=== PATIENT | male | born 1970 | race Two or more races ===

== ENCOUNTER 2019-06-20 14:38 | Inpatient (IN) | payer MEDICAID ==
[~2019-06-20] VITALS: Ht 182.9 cm; Wt 86.2 kg
[2019-06-20] MEDS ORDERED: MILK OF MA2400 MG/10 ORAL (14:50)
[2019-06-20] MEDS ORDERED: MULTIVITAMINS1 EAC8 ORAL (14:53)
[2019-06-20] MEDS ORDERED: MORPHINE SULFAT15 M1 PO (14:53)
--- NOTE | 2019-06-20 15:01 | NUR ---
ED Nurse Note: Pt brought in by ambulance from [facility] d/t abnormal labs. Plt: 12,000. WBC 19.51. Per EMS, pt had a bloody nose earlier today with large clot. Respirations even and unlabored on room air. Pt placed on monitor. Vitals stable as documented. Pt has history of lukemia and cirrhosis. PT BROUGHT IN BY [facility] FROM [facility] DUE TO LOW PLATELET COUNT 12,000. WBC OF 19.51. PT IS DNR
[2019-06-20 15:04] VITALS: BP 118/71
[2019-06-20] MEDS ORDERED: VITAMIN B-1100 MG ORAL (15:16)
[2019-06-20] MEDS ORDERED: QUETIAPINE FUMA50 MG ORAL (15:16)
[2019-06-20] MEDS ORDERED: MYLANTA MAXIMU355 ML PO (15:16)
[2019-06-20] MEDS ORDERED: NORCO 5-325 TA1 EACH ORAL (15:16)
[2019-06-20] MEDS ORDERED: ACETAMINOPHEN325 M1 ORAL (15:16)
[2019-06-20] MEDS ORDERED: OYSCO 500+D TA1 EAC1 PO (15:16)
[2019-06-20 17:02] LABS: INR 1.1 (0.9-1.1)
[2019-06-20 17:04] LABS: ANION GAP 11 mmol/L (5-15); BLOOD UREA NITROGEN 35 mg/dL (7-18); CALCIUM 9.1 MG/DL (8.5-10.1); CARBON DIOXIDE 27 MMOL/L (21-32); CHLORIDE 100 MMOL/L (98-107); CREATININE 1.2 MG/DL (0.55-1.30); SODIUM 138 MMOL/L (136-145)
[2019-06-20 17:09] LABS: ALANINE AMINOTRANSFERASE 30 U/L (12-78); ALBUMIN 3.3 G/DL (3.4-5.0); ALKALINE PHOSPHATASE 242 U/L (46-116); ASPARTATE AMINO TRANSFERASE 24 U/L (15-37); BILIRUBIN,TOTAL 0.6 MG/DL (0.2-1.0)
[2019-06-20 17:17] LABS: HEMATOCRIT 20.5 % (42.0-52.0); MEAN CORPUSCULAR VOLUME 87 FL (80-99); RED BLOOD COUNT 2.36 M/UL (4.70-6.10); RED CELL DISTRIBUTION WIDTH 12.6 % (11.6-14.8)
[2019-06-20 17:21] LABS: PLATELET COUNT 5 K/UL (150-450); WHITE BLOOD COUNT 25.9 K/UL (4.8-10.8)
--- NOTE | 2019-06-20 17:21 | NUR ---
ED Nurse Note: Pt confused. Bulgarian speaking, A+Ox1/2. Pt continues to pull off child monitor leads. Reapplied and asked pt to keep them on.
[2019-06-20 17:30] VITALS: BP 121/74
--- NOTE | 2019-06-20 17:44 | NUR ---
ED Nurse Note: Spoke with lab and they confirmed they have the blood for type and cross
--- NOTE | 2019-06-20 17:49 | NUR ---
ED Nurse Note: Spoke with Pia in blood bank whom said she is working on the type and cross for the patient.
--- NOTE | 2019-06-20 17:59 | NUR ---
ED Nurse Note: MRSA/VRE/CRE Swabs sent to lab
--- NOTE | 2019-06-20 18:05 | NUR ---
ED Nurse Note: Leads removed and replaced
--- NOTE | 2019-06-20 18:23 | NUR ---
ED Nurse Note: Waiting on blood blank to begin plasmapheresis before transferring patient to telemtry.
--- NOTE | 2019-06-20 18:51 | Emergency Room Report ---
History of Present Illness General Chief Complaint: Abnormal Labs Source: Patient, Medical Record Present Illness HPI Patient presented for increased bleeding. Had prior history of leukemia. He was noted to be thrombocytopenic on laboratory testing. Patient was sent in for further management of bleeding. Patient had recent blood test which showed platelet count approximately 12,000. He had also been noted to have hemoglobin of 7.6. White count was somewhat elevated. History is limited by poor historian. Patient was noted to be DNR. Allergies: Coded Allergies: No Known Allergies (Unverified , 06/20/19) Patient History Past Medical History: see triage record Reviewed Nursing Documentation: PMH: Agreed; PSxH: Agreed Review of Systems All Other Systems: limited - Review of systems: Review systems is limited by patient's being a poor historian Physical Exam Vital Signs Date Time Temp Pulse Resp B/P (MAP) Pulse Ox O2 Delivery O2 Flow Rate FiO2 06/20/19 14:39 98.1 106 18 119/80 (93) 91 Room Air General Appearance: Chronically Ill ENT: other - dried Blood from oropharynx Neck: full range of motion, supple Respiratory: chest non-tender, lungs clear, normal breath sounds Cardiovascular #1: normal peripheral pulses, regular rate, rhythm Gastrointestinal: normal bowel sounds, soft Musculoskeletal: back normal, decreased range of motion Neurologic: motor strength/tone normal, 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 Differential diagnosis include was not limited to thrombocytopenia, anemia among others. Because of complexity of patient's case laboratory tests and imaging studies were ordered. Patient was noted to have prior history of leukemia and was noted to have some blood from his oropharynx. Per patient's records patient is to have high blood transfusion. He continues to be DNR. Patient was typed and crossed for blood as well as for platelets. Platelets were ordered however they were currently unavailable during ER course Dr. Cam Raya was contacted for inpatient management due to covering physician for Dr. Hernandez. Labs Test 06/20/19 15:30 White Blood Count 25.9 K/UL (4.8-10.8) Red Blood Count 2.36 M/UL (4.70-6.10) Hemoglobin 7.0 G/DL (14.2-18.0) Hematocrit 20.5 % (42.0-52.0) Mean Corpuscular Volume 87 FL (80-99) Mean Corpuscular Hemoglobin 29.7 PG (27.0-31.0) Mean Corpuscular Hemoglobin Concent 34.2 G/DL (32.0-36.0) Red Cell Distribution Width 12.6 % (11.6-14.8) Platelet Count 5 K/UL (150-450) Neutrophils (%) (Auto) % (45.0-75.0) Lymphocytes (%) (Auto) % (20.0-45.0) Monocytes (%) (Auto) % (1.0-10.0) Eosinophils (%) (Auto) % (0.0-3.0) Basophils (%) (Auto) % (0.0-2.0) Prothrombin Time 11.6 SEC (9.30-11.50) Prothromb Time International Ratio 1.1 (0.9-1.1) Activated Partial Thromboplast Time 32 SEC (23-33) Sodium Level 138 MMOL/L (136-145) Potassium Level 5.0 MMOL/L (3.5-5.1) Chloride Level 100 MMOL/L (98-107) Carbon Dioxide Level 27 MMOL/L (21-32) Anion Gap 11 mmol/L (5-15) Blood Urea Nitrogen 35 mg/dL (7-18) Creatinine 1.2 MG/DL (0.55-1.30) Estimat Glomerular Filtration Rate > 60 mL/min (>60) Glucose Level 107 MG/DL (74-106) Calcium Level 9.1 MG/DL (8.5-10.1) Total Bilirubin 0.6 MG/DL (0.2-1.0) Aspartate Amino Transf (AST/SGOT) 24 U/L (15-37) Alanine Aminotransferase (ALT/SGPT) 30 U/L (12-78) Alkaline Phosphatase 242 U/L (46-116) Total Protein 6.6 G/DL (6.4-8.2) Albumin 3.3 G/DL (3.4-5.0) Globulin 3.3 g/dL Albumin/Globulin Ratio 1.0 (1.0-2.7) Last Vital Signs Date Time Temp Pulse Resp B/P (MAP) Pulse Ox O2 Delivery O2 Flow Rate FiO2 06/20/19 17:30 98.0 102 18 121/74 95 Room Air Status: improved Disposition: ADMITTED INPATIENT Condition: Stable Referrals: NON PHYSICIAN (PCP) George Toney MD Jun 20, 2019 18:51
--- NOTE | 2019-06-20 19:09 | NUR ---
ED Nurse Note: Report given to REGINO Martinez. Plan of care endorsed.
[2019-06-20 19:10] VITALS: BP 128/71
--- NOTE | 2019-06-20 19:18 | NUR ---
ED Nurse Note: Received report from Teetee LACY. Type and screen blood collected and sent to lab.
--- NOTE | 2019-06-20 19:49 | NUR ---
ED Nurse Note: Report given Miles LACY from Tele.
--- NOTE | 2019-06-20 20:05 | NUR ---
ED Nurse Note: Blood was picked up from the lab.
--- NOTE | 2019-06-20 20:10 | NUR ---
Noel fan in EDM - 06/20/19 at 2233 by JOSÉ LUIS ED Nurse Note: Report given to Miles MONTEMAYOR
[2019-06-20 20:15] VITALS: BP 108/79
--- NOTE | 2019-06-20 20:15 | NUR ---
ED Nurse Note: Blood transfusion started and witnessed by Carie LACY. No ASE noted.
[2019-06-20 20:30] VITALS: BP 113/84
--- NOTE | 2019-06-20 20:40 | NUR ---
TRANSFER TO FLOOR: Patient transferred to Telemetry unit. Report given to Miles LACY. Pt alert and orientedx2, chinese speaking only. No SOB. Not in any distress. Sinus tachy. Afebrile. IV line on right hand 20g patent and intact. Currently on BT @150ml/hr, Non ASE noted. No skin issues. Swabs are sent. Med recon done. All belongings sent with the patient.
[2019-06-20 21:00] VITALS: BP 126/84
--- NOTE | 2019-06-20 21:00 | NUR ---
NURSE NOTES: Got report from Michelle LACY from ER. Pt arrived from ER via gurney. Initial assessment done. Pt unable to answer any of my questions Belgian speaking and confused. Pt non ambulatory. No skin issues noted. VS T:97.7 HR:105 R:18 BP:126/84 O2:96% on room air. color television console monitor placed on pt running Sinus Tachycardia on the monitor. Belongings list verified. No s/s of distress or discomfort noted. Pt here for abnormal labs. Pt resting in bed comfortably. Bed in low and locked position, call light within reach, bedside table within reach. Continue to monitor. Orders given by Dr. Raya. Addendum: 06/21/19 at 0706 by Chidi Marrero RN Transfused 2 Units of blood and 1 unit of platelets throughout the night. Pt in stable condition.
[2019-06-21] VITALS: BP 146/84
[2019-06-21 04:00] VITALS: BP 130/79
[2019-06-21] MEDS ORDERED: LORazepam Inj 2mg/ml 1ml IV PRN (05:30)
[2019-06-21] MEDS ORDERED: HYDROcodone/Acetamin 5/325 tab ORAL PRN (06:00)
[2019-06-21] MEDS ORDERED: Morphine IR 15mg tab ORAL PRN (06:00)
--- NOTE | 2019-06-21 07:20 | NUR ---
HAND-OFF: Report given to Miguel LACY.
[2019-06-21 08:00] VITALS: BP 140/95
--- NOTE | 2019-06-21 08:09 | General Progress Note ---
Subjective Allergies: Coded Allergies: No Known Allergies (Unverified , 06/20/19) Objective Last 24 Hour Vital Signs Date Time Temp Pulse Resp B/P (MAP) Pulse Ox O2 Delivery O2 Flow Rate FiO2 06/21/19 06:12 Room Air 06/21/19 05:55 Room Air 06/21/19 04:00 115 06/21/19 04:00 98.5 100 18 130/79 (96) 96 06/21/19 00:00 98.1 115 18 146/84 (104) 96 06/20/19 21:00 97.7 105 18 126/84 (98) 96 06/20/19 20:40 97.8 106 19 113/84 98 Room Air 06/20/19 20:30 97.8 106 19 113/84 98 Room Air 06/20/19 20:15 97.8 101 19 108/79 99 Room Air 06/20/19 20:00 103 06/20/19 19:10 98.2 100 19 128/71 98 Room Air 06/20/19 17:30 98.0 102 18 121/74 95 Room Air 06/20/19 15:04 98.1 105 18 118/71 95 Room Air 06/20/19 14:39 98.1 106 18 119/80 (93) 91 Room Air Intake and Output 06/20/19 06/21/19 19:00 07:00 Intake Total 0 ml Balance 0 ml Intake Oral 0 ml # Voids 2 Laboratory Tests 06/20/19 15:30: White Blood Count 25.9*H, Red Blood Count 2.36L, Hemoglobin 7.0L, Hematocrit 20.5L, Mean Corpuscular Volume 87, Mean Corpuscular Hemoglobin 29.7, Mean Corpuscular Hemoglobin Concent 34.2, Red Cell Distribution Width 12.6, Platelet Count 5*L, Mean Platelet Volume , Neutrophils (%) (Auto) , Lymphocytes (%) (Auto ) , Monocytes (%) (Auto) , Eosinophils (%) (Auto) , Basophils (%) (Auto) , Differential Total Cells Counted 100, Neutrophils % (Manual) 14L, Lymphocytes % (Manual) 77H, Monocytes % (Manual) 0L, Eosinophils % (Manual) 0, Basophils % ( Manual) 0, Blast Cells % 8*H, Band Neutrophils 1, Reactive Lymphocytes 1+, Smudge Cells Occasional, Platelet Estimate DecreasedL, Platelet Morphology Normal, Hypochromasia 3+, Prothrombin Time 11.6H, Prothromb Time International Ratio 1.1, Activated Partial Thromboplast Time 32, Sodium Level 138, Potassium Level 5.0, Chloride Level 100, Carbon Dioxide Level 27, Anion Gap 11, Blood Urea Nitrogen 35H, Creatinine 1.2, Estimat Glomerular Filtration Rate > 60, Glucose Level 107H, Calcium Level 9.1, Total Bilirubin 0.6, Aspartate Amino Transf (AST/SGOT) 24, Alanine Aminotransferase (ALT/SGPT) 30, Alkaline Phosphatase 242H, Total Protein 6.6, Albumin 3.3L, Globulin 3.3, Albumin/ Globulin Ratio 1.0 06/21/19 07:00: Sodium Level [Pending], Potassium Level [Pending], Chloride Level [Pending], Carbon Dioxide Level [Pending], Blood Urea Nitrogen [Pending], Creatinine [ Pending], Estimat Glomerular Filtration Rate [Pending], Glucose Level [Pending] , Calcium Level [Pending] 06/21/19 07:15: White Blood Count [Pending], Red Blood Count [Pending], Hemoglobin [Pending], Hematocrit [Pending], Mean Corpuscular Volume [Pending], Mean Corpuscular Hemoglobin [Pending], Mean Corpuscular Hemoglobin Concent [Pending], Red Cell Distribution Width [Pending], Platelet Count [Pending], Mean Platelet Volume [ Pending], Neutrophils (%) (Auto) [Pending], Lymphocytes (%) (Auto) [Pending], Monocytes (%) (Auto) [Pending], Eosinophils (%) (Auto) [Pending], Basophils (%) (Auto) [Pending] Height (Feet): 6 Height (Inches): 0.00 Weight (Pounds): 190 Cam Raya MD Jun 21, 2019 08:09
--- NOTE | 2019-06-21 08:09 | History & Physical ---
History and Physical History & Physicial Patient presented for increased bleeding from the half-way. He has a history of leukemia. He was noted to be thrombocytopenic and anemic. Patient had recent blood test which showed profound thrombocytopenia, anemia, and leukocytosis. History is limited by poor historian. Patient was noted to be DNR. PMH leukemia panyctopenia psychosis MEDS and ALLERGIES noted and reconciled SOCIAL- resides at [facility] ROS unable FHX unable PHYSICAL WDWN chronically ill clear breath sounds bilaterally without rhonchi or wheeze [id number] without MRG NABS nontender no HSM no CCE nonfocal Labs Test 06/20/19 15:30 06/21/19 07:00 06/21/19 07:15 White Blood Count 25.9 K/UL (4.8-10.8) Red Blood Count 2.36 M/UL (4.70-6.10) Hemoglobin 7.0 G/DL (14.2-18.0) Hematocrit 20.5 % (42.0-52.0) Mean Corpuscular Volume 87 FL (80-99) Mean Corpuscular Hemoglobin 29.7 PG (27.0-31.0) Mean Corpuscular Hemoglobin Concent 34.2 G/DL (32.0-36.0) Red Cell Distribution Width 12.6 % (11.6-14.8) Platelet Count 5 K/UL (150-450) Mean Platelet Volume FL (6.5-10.1) Neutrophils (%) (Auto) % (45.0-75.0) Lymphocytes (%) (Auto) % (20.0-45.0) Monocytes (%) (Auto) % (1.0-10.0) Eosinophils (%) (Auto) % (0.0-3.0) Basophils (%) (Auto) % (0.0-2.0) Differential Total Cells Counted 100 Neutrophils % (Manual) 14 % (45-75) Lymphocytes % (Manual) 77 % (20-45) Monocytes % (Manual) 0 % (1-10) Eosinophils % (Manual) 0 % (0-3) Basophils % (Manual) 0 % (0-2) Blast Cells % 8 % (0-0) Band Neutrophils 1 % (0-8) Reactive Lymphocytes 1+ Smudge Cells Occasional Platelet Estimate Decreased Platelet Morphology Normal Hypochromasia 3+ Prothrombin Time 11.6 SEC (9.30-11.50) Prothromb Time International Ratio 1.1 (0.9-1.1) Activated Partial Thromboplast Time 32 SEC (23-33) Sodium Level 138 MMOL/L (136-145) Potassium Level 5.0 MMOL/L (3.5-5.1) Chloride Level 100 MMOL/L (98-107) Carbon Dioxide Level 27 MMOL/L (21-32) Anion Gap 11 mmol/L (5-15) Blood Urea Nitrogen 35 mg/dL (7-18) Creatinine 1.2 MG/DL (0.55-1.30) Estimat Glomerular Filtration Rate > 60 mL/min (>60) Glucose Level 107 MG/DL (74-106) Calcium Level 9.1 MG/DL (8.5-10.1) Total Bilirubin 0.6 MG/DL (0.2-1.0) Aspartate Amino Transf (AST/SGOT) 24 U/L (15-37) Alanine Aminotransferase (ALT/SGPT) 30 U/L (12-78) Alkaline Phosphatase 242 U/L (46-116) Total Protein 6.6 G/DL (6.4-8.2) Albumin 3.3 G/DL (3.4-5.0) Globulin 3.3 g/dL Albumin/Globulin Ratio 1.0 (1.0-2.7) IMPRESSION thrombocytopenia anemia leukemia bleeding diathesis toxic met encephalopathy PLAN transfuse platelets and PRBC monitor for bleeding resume snf meds heme eval dc to snf prognosis is poor impression, plan, and exam edited and reviewed in detail care discussed with Cam Dennis MD Jun 21, 2019 08:09
[2019-06-21 08:22] LABS: ANION GAP 13 mmol/L (5-15); BLOOD UREA NITROGEN 39 mg/dL (7-18); CALCIUM 9.2 MG/DL (8.5-10.1); CARBON DIOXIDE 27 MMOL/L (21-32); CHLORIDE 102 MMOL/L (98-107); CREATININE 1.3 MG/DL (0.55-1.30); POTASSIUM 4.5 MMOL/L (3.5-5.1); SODIUM 142 MMOL/L (136-145)
[2019-06-21] MEDS: Tums 500mg ORAL SCH (08:50)
[2019-06-21] MEDS: Milk of Magnesia 30ml Ud ORAL SCH ×2 (08:50→21:00)
[2019-06-21] MEDS: Thiamine 100mg tab ORAL SCH (08:50)
[2019-06-21 09:02] LABS: HEMATOCRIT 25.5 % (42.0-52.0); HEMOGLOBIN 9.4 G/DL (14.2-18.0); MEAN CORPUSCULAR VOLUME 85 FL (80-99); RED CELL DISTRIBUTION WIDTH 12.1 % (11.6-14.8)
[2019-06-21 09:07] LABS: WHITE BLOOD COUNT 22.3 K/UL (4.8-10.8)
[2019-06-21 09:08] LABS: PLATELET COUNT 8 K/UL (150-450)
--- NOTE | 2019-06-21 10:53 | NUR ---
NURSE NOTES: pt asleep easily arousable, no distress. no sob.call light within reach. bed in lowest position, locked. 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 cleaned pt, voidx2, incontinent. turned and repositioned. pt still has intermittent restlessness and has removed his iv on left hand 22, no bleeding at this time. reinserted patent iv on rfa 22g clamped. will monitor.
[2019-06-21 12:00] VITALS: BP 128/80
[2019-06-21 16:00] VITALS: BP 134/80
--- NOTE | 2019-06-21 18:01 | NUR ---
NURSE NOTES: relayed to pt re minimal gum bleeding , no new orders . also relayed to pt refusing meals only drank some water, rn asked for possible iv fluids. await response Addendum: 06/21/19 at 1917 by RAZA FUNEZ RN AWARE OF ABOVE RECEIVED ORDER FOR LABS IN AM , ENTERED
[2019-06-21 19:11] LABS: HEMATOCRIT 24.8 % (42.0-52.0); HEMOGLOBIN 8.1 G/DL (14.2-18.0); MEAN CORPUSCULAR VOLUME 88 FL (80-99); RED BLOOD COUNT 2.82 M/UL (4.70-6.10); RED CELL DISTRIBUTION WIDTH 12.8 % (11.6-14.8); WHITE BLOOD COUNT 10.5 K/UL (4.8-10.8)
--- NOTE | 2019-06-21 19:18 | NUR ---
HAND-OFF: Report given to GORDON LACY.
[2019-06-21 19:19] LABS: PLATELET COUNT 5 K/UL (150-450)
--- NOTE | 2019-06-21 19:19 | NUR ---
NURSE NOTES: Got report from Miguel LACY. Pt in stable condition. Denies any pain. No s/s of distress or discomfort noted. Pt resting in bed comfortably. Bed in low and locked position, call light within reach, bedside table within reach. Continue to monitor.
[2019-06-21 20:00] VITALS: BP 137/68
[2019-06-22] VITALS: BP 148/86
[2019-06-22 04:00] VITALS: BP 131/86
--- NOTE | 2019-06-22 07:45 | NUR ---
HAND-OFF: Report given to Cici LACY.
--- NOTE | 2019-06-22 07:46 | NUR ---
NURSE NOTES: Patient received from Miles Marrero RN. Patient stable, asking for knife to cut restraints. Patient explained need for restraints but unable to verbalize understanding. Will continue for now. RR even and unlabored on RA. No s/sx of distress. Side rails upx2, call light within reach, bed low and locked. Will continue to monitor.
[2019-06-22 08:00] VITALS: BP 142/91
[2019-06-22 08:02] LABS: HEMATOCRIT 21.4 % (42.0-52.0); HEMOGLOBIN 7.8 G/DL (14.2-18.0); MEAN CORPUSCULAR VOLUME 84 FL (80-99); PLATELET COUNT 12 K/UL (150-450); RED BLOOD COUNT 2.55 M/UL (4.70-6.10); RED CELL DISTRIBUTION WIDTH 12.2 % (11.6-14.8); WHITE BLOOD COUNT 9.6 K/UL (4.8-10.8)
[2019-06-22] MEDS: Tums 500mg ORAL SCH (08:22)
[2019-06-22] MEDS: Milk of Magnesia 30ml Ud ORAL SCH ×2 (08:22→21:00)
[2019-06-22] MEDS: Thiamine 100mg tab ORAL SCH (08:23)
[2019-06-22 08:41] LABS: ANION GAP 11 mmol/L (5-15); BLOOD UREA NITROGEN 43 mg/dL (7-18); CALCIUM 8.8 MG/DL (8.5-10.1); CARBON DIOXIDE 28 MMOL/L (21-32); CHLORIDE 105 MMOL/L (98-107); CREATININE 1.2 MG/DL (0.55-1.30); POTASSIUM 4.1 MMOL/L (3.5-5.1); SODIUM 144 MMOL/L (136-145)
--- NOTE | 2019-06-22 10:33 | General Progress Note ---
Assessment/Plan Assessment/Plan: IMPRESSION thrombocytopenia anemia leukemia bleeding diathesis toxic met encephalopathy PLAN transfuse platelets and PRBC remains low monitor for bleeding maintain snf meds heme eval dc to snf when stable prognosis is poor ? hospice impression, plan, and exam edited and reviewed in detail care discussed with RN Subjective Allergies: Coded Allergies: No Known Allergies (Unverified , 06/20/19) Subjective care noted heme called Objective Last 24 Hour Vital Signs Date Time Temp Pulse Resp B/P (MAP) Pulse Ox O2 Delivery O2 Flow Rate FiO2 06/22/19 08:00 104 06/22/19 04:00 97.8 100 18 131/86 (101) 97 06/22/19 04:00 98 06/22/19 00:00 100 06/22/19 00:00 98.0 105 18 148/86 (106) 97 06/21/19 21:00 Room Air 06/21/19 20:00 98.0 108 18 137/68 (91) 97 06/21/19 16:15 106 06/21/19 16:00 98.5 106 18 134/80 (98) 96 06/21/19 12:00 98.5 110 18 128/80 (96) 96 06/21/19 11:46 107 Intake and Output 06/21/19 06/22/19 19:00 07:00 Intake Total 500 ml Output Total 800 ml 500 ml Balance -300 ml -500 ml Intake Oral 500 ml Output Urine Total 800 ml 500 ml Stool Total 0 ml # Voids 3 Laboratory Tests 06/21/19 18:15: White Blood Count 10.5#, Red Blood Count 2.82L, Hemoglobin 8.1L, Hematocrit 24.8L, Mean Corpuscular Volume 88, Mean Corpuscular Hemoglobin 28.9, Mean Corpuscular Hemoglobin Concent 32.9, Red Cell Distribution Width 12.8, Platelet Count 5*L, Mean Platelet Volume 9.4, Neutrophils (%) (Auto) , Lymphocytes (%) ( Auto) , Monocytes (%) (Auto) , Eosinophils (%) (Auto) , Basophils (%) (Auto) , Differential Total Cells Counted 100, Neutrophils % (Manual) 12L, Lymphocytes % (Manual) 62H, Monocytes % (Manual) 5, Eosinophils % (Manual) 0, Basophils % ( Manual) 0, Blast Cells % 21*H, Band Neutrophils 0, Platelet Estimate DecreasedL , Platelet Morphology Normal, Hypochromasia 2+, Anisocytosis 1+, Spherocytes 2+ 06/22/19 07:10: White Blood Count 9.6, Red Blood Count 2.55L, Hemoglobin 7.8L, Hematocrit 21.4L , Mean Corpuscular Volume 84, Mean Corpuscular Hemoglobin 30.8, Mean Corpuscular Hemoglobin Concent 36.7H, Red Cell Distribution Width 12.2, Platelet Count 12#L, Mean Platelet Volume 9.0, Neutrophils (%) (Auto) , Lymphocytes (%) (Auto) , Monocytes (%) (Auto) , Eosinophils (%) (Auto) , Basophils (%) (Auto) , Differential Total Cells Counted 100, Neutrophils % ( Manual) 10L, Lymphocytes % (Manual) 74H, Monocytes % (Manual) 2, Eosinophils % ( Manual) 1, Basophils % (Manual) 0, Blast Cells % 10*H, Band Neutrophils 3, Platelet Estimate DecreasedL, Platelet Morphology Normal, Hypochromasia 1+, Sodium Level 144, Potassium Level 4.1, Chloride Level 105, Carbon Dioxide Level 28, Anion Gap 11, Blood Urea Nitrogen 43H, Creatinine 1.2, Estimat Glomerular Filtration Rate > 60, Glucose Level 100, Calcium Level 8.8 Height (Feet): 6 Height (Inches): 0.00 Weight (Pounds): 190 Objective WDWN NAD clear breath sounds bilaterally without rhonchi or wheeze [id number] without MRG NABS nontender no HSM no CCE nonfocal Cam Raya MD Jun 22, 2019 10:33
[2019-06-22 12:00] VITALS: BP 124/90
--- NOTE | 2019-06-22 15:05 | Consultation ---
History of Present Illness General Chief Complaint: Abnormal Labs Present Illness Allergies: Coded Allergies: No Known Allergies (Unverified , 06/20/19) Medication History Scheduled Magnesium Hydroxide* (Milk Of Magnesia*), 20 ML ORAL Q12HR, (Reported) Morphine Sulfate (Morphine Sulfate Er), 15 MG PO Q12HR, (Reported) Multivitamin With Minerals (Multivitamins With Minerals*), 1 TAB ORAL DAILY, ( Reported) Quetiapine Fumarate* (Quetiapine Fumarate*), 25 MG ORAL DAILY, (Reported) Thiamine Hcl* (Vitamin B-1*), 200 MG ORAL DAILY, (Reported) Scheduled PRN Acetaminophen* (Acetaminophen 325MG Tablet*), 325 MG ORAL Q4H PRN for Pain Scale (3-5), (Reported) Hydrocodone Bit/Acetaminophen 5-325* ([place] 5-325*), 1 TAB ORAL Q6H PRN for For Pain, (Reported) Miscellaneous Medications Calcium Carbonate/Vitamin D3 ([place] 500+D Tablet), 1 EACH PO, (Reported) Mag Hydrox/Aluminum Hyd/Simeth (Mylanta Maximum Strength Liq), 355 ML PO, ( Reported) Patient History Healthcare decision maker N Resuscitation status Advanced Directive on File Physical Exam Last 24 Hour Vital Signs Date Time Temp Pulse Resp B/P (MAP) Pulse Ox O2 Delivery O2 Flow Rate FiO2 06/22/19 12:00 98.1 102 20 124/90 (101) 95 06/22/19 12:00 109 06/22/19 09:00 Room Air 06/22/19 08:00 104 06/22/19 08:00 97.9 105 19 142/91 (108) 98 06/22/19 04:00 97.8 100 18 131/86 (101) 97 06/22/19 04:00 98 06/22/19 00:00 100 06/22/19 00:00 98.0 105 18 148/86 (106) 97 06/21/19 21:00 Room Air 06/21/19 20:00 98.0 108 18 137/68 (91) 97 06/21/19 16:15 106 06/21/19 16:00 98.5 106 18 134/80 (98) 96 Intake and Output 06/21/19 06/22/19 19:00 07:00 Intake Total 500 ml Output Total 800 ml 500 ml Balance -300 ml -500 ml Intake Oral 500 ml Output Urine Total 800 ml 500 ml Stool Total 0 ml # Voids 3 Laboratory Tests Test 06/21/19 18:15 06/22/19 07:10 White Blood Count 10.5 K/UL (4.8-10.8) # 9.6 K/UL (4.8-10.8) Red Blood Count 2.82 M/UL (4.70-6.10) L 2.55 M/UL (4.70-6.10) L Hemoglobin 8.1 G/DL (14.2-18.0) L 7.8 G/DL (14.2-18.0) L Hematocrit 24.8 % (42.0-52.0) L 21.4 % (42.0-52.0) L Mean Corpuscular Volume 88 FL (80-99) 84 FL (80-99) Mean Corpuscular Hemoglobin 28.9 PG (27.0-31.0) 30.8 PG (27.0-31.0) Mean Corpuscular Hemoglobin Concent 32.9 G/DL (32.0-36.0) 36.7 G/DL (32.0-36.0) H Red Cell Distribution Width 12.8 % (11.6-14.8) 12.2 % (11.6-14.8) Platelet Count 5 K/UL (150-450) *L 12 K/UL (150-450) #L Mean Platelet Volume 9.4 FL (6.5-10.1) 9.0 FL (6.5-10.1) Neutrophils (%) (Auto) % (45.0-75.0) % (45.0-75.0) Lymphocytes (%) (Auto) % (20.0-45.0) % (20.0-45.0) Monocytes (%) (Auto) % (1.0-10.0) % (1.0-10.0) Eosinophils (%) (Auto) % (0.0-3.0) % (0.0-3.0) Basophils (%) (Auto) % (0.0-2.0) % (0.0-2.0) Differential Total Cells Counted 100 100 Neutrophils % (Manual) 12 % (45-75) L 10 % (45-75) L Lymphocytes % (Manual) 62 % (20-45) H 74 % (20-45) H Monocytes % (Manual) 5 % (1-10) 2 % (1-10) Eosinophils % (Manual) 0 % (0-3) 1 % (0-3) Basophils % (Manual) 0 % (0-2) 0 % (0-2) Blast Cells % 21 % (0-0) *H 10 % (0-0) *H Band Neutrophils 0 % (0-8) 3 % (0-8) Platelet Estimate Decreased L Decreased L Platelet Morphology Normal Normal Hypochromasia 2+ 1+ Anisocytosis 1+ Spherocytes 2+ Sodium Level 144 MMOL/L (136-145) Potassium Level 4.1 MMOL/L (3.5-5.1) Chloride Level 105 MMOL/L (98-107) Carbon Dioxide Level 28 MMOL/L (21-32) Anion Gap 11 mmol/L (5-15) Blood Urea Nitrogen 43 mg/dL (7-18) H Creatinine 1.2 MG/DL (0.55-1.30) Estimat Glomerular Filtration Rate > 60 mL/min (>60) Glucose Level 100 MG/DL (74-106) Calcium Level 8.8 MG/DL (8.5-10.1) Height (Feet): 6 Height (Inches): 0.00 Weight (Pounds): 190 Medications Current Medications Medications (Trade) Dose Ordered Sig/Balwinder Route PRN Reason Start Time Stop Time Status Last Admin Dose Admin Acetaminophen (Tylenol) 650 mg Q4H PRN ORAL Mild Pain/Temp > 100.5 06/21/19 05:30 07/21/19 05:29 Acetaminophen/ Hydrocodone Bitart ([place] 5/325) 1 tab Q6H PRN ORAL For Pain 06/21/19 06:00 06/28/19 05:59 Al Hydroxide/Mg Hydroxide (Mylanta) 30 ml Q4H PRN ORAL Abdominal cramps 06/21/19 05:30 07/21/19 05:29 Calcium Carbonate (Tums) 500 mg DAILY ORAL 06/21/19 09:00 07/21/19 08:59 06/22/19 08:22 Lorazepam (Ativan 2mg/ml 1ml) 1 mg Q4H PRN IV For Anxiety 06/21/19 05:30 06/28/19 05:29 Magnesium Hydroxide (Mom) 20 ml EVERY 12 HOURS ORAL 06/21/19 09:00 07/21/19 08:59 06/22/19 08:22 Morphine HCl (Morphine IR) 15 mg Q12H PRN ORAL Severe Pain (Pain Scale 7-10) 06/21/19 06:00 06/28/19 05:59 Multivitamins (Multivitamins) 1 tab DAILY ORAL 06/21/19 09:00 07/21/19 08:59 06/22/19 08:22 Pantoprazole (Protonix) 40 mg DAILY ORAL 06/21/19 09:00 07/21/19 08:59 06/22/19 08:22 Quetiapine Fumarate (SEROqueL) 50 mg DAILY ORAL 06/21/19 09:00 07/21/19 08:59 06/22/19 08:22 Sodium Chloride 1,000 ml @ 100 mls/hr Q10H IV 06/21/19 18:15 07/21/19 18:14 06/22/19 10:49 Thiamine HCl (Vitamin B1) 200 mg DAILY ORAL 06/21/19 09:00 07/21/19 08:59 06/22/19 08:23 Assessment/Plan Assessment/Plan: Hematology Consultation RFC: LEUKEMIA ANNEL GARCIA MD: Cam Raya DOS: 06/22/2019 HPI Patient presented for increased bleeding. Had prior history of leukemia. He was noted to be thrombocytopenic on laboratory testing. Patient was sent in for further management of bleeding. Patient had recent blood test which showed platelet count approximately 12,000. He had also been noted to have hemoglobin of 7.6. White count was somewhat elevated. History is limited by poor historian. Patient was noted to be DNR. He is a extremely poor historian, I attempted to find out re his leukemia history, if he had any other contacts, I called [facility] Benite[facility], talked to a ore charger, but she was unable to provide any history for hum. Coded Allergies: No Known Allergies (Unverified , 06/20/19) Patient History Past Medical History: see triage record Reviewed Nursing Documentation: PMH: Agreed; PSxH: Agreed ROS General: Denies fatigue, fever, chills, weight loss; + weight gain as above HENT: Denies oral sores, neck masses, nasal d/c, hearing problems Vison: Denies change in vision, eye pain, redness, discharge Cardiac: As above Pulmonary: As above GI: Denies heart burn, swallowing difficulty, abdominal pain, diarrhea, constipation : As per HPI Neuro: Denies seizure, weakness, numbness Endo: Denies heat/cold intolerance, weight changes, polyuria, polydipsia Heme/Onc: Denies unusual bleeding, bruising, clotting MSK: Denies join pain, swelling, muscle aches Mental Health: Denies anxiety, depression, mood changes PE: Vitals: reviewed General Appearance: NAD HEENT: normocephalic, atraumatic Neck: non-tender, normal alignment Respiratory/Chest: normal breath sounds bilaterally Cardiovascular/Chest: normal peripheral pulses, normal rate Abdomen: normal bowel sounds, soft, nontender Extremities: normal range of motion Labs: noted Imaging: reviewed Assessment and Recs: # Leukemia that appears acute in onset -- have contacted his snf, they are unable to provide any further history for him --> recommend to obtain records in re to his leukemia if it has been treated --> may need transfer to higher level of care/tertiary center [facility] --> will r/o DIc at this time --> if no further treatment, has a very poor prognosis # Anemia of chronic disease due to underlying chronic medical issues, multifactorial v Gi bleed in this case due to leukemia --> Anemia workup has been ordered, rule out gi bleed --> No evidence of hemolysis is noted, peripheral smear has been reviewed. --> Hgb goal >7. Transfuse prn. --> Epogen or iron at this time is not particularly indicated --> Medications have been reviewed --> low threshold for gi evaluation in case has occult + # Bleeding diathesis with gingival bleeding. --> s/p plt and prbc transfusions --> will given vitamin K --> recheck inr/ptt after that # DNR. Appreciate consultation and dw Felipe Parker MD Jun 22, 2019 15:05
--- NOTE | 2019-06-22 15:06 | NUR ---
NURSE NOTES: Called Charlette Benitez at regarding leukemia treatment for patient. Per staff, we need to call again tomorrow and speak with Mary.
[2019-06-22 16:00] VITALS: BP 145/84
[2019-06-22] MEDS ORDERED: Phytonadione 10 mg/mL 1ml amp SUBQ ONE (16:00)
--- NOTE | 2019-06-22 19:42 | NUR ---
HAND-OFF: Report given to Miles Marrero RN. Patient stable. Endorsed plan of care. Platelets transfusing. Endorsed that second bag was ordered but per blood bank personnel, cbc needs to be ordered between bags before second bag is ordered.
[2019-06-22 20:00] VITALS: BP 139/91
[2019-06-22 21:43] LABS: HEMATOCRIT 18.7 % (42.0-52.0); MEAN CORPUSCULAR VOLUME 88 FL (80-99); PLATELET COUNT 17 K/UL (150-450); RED BLOOD COUNT 2.12 M/UL (4.70-6.10); RED CELL DISTRIBUTION WIDTH 13.2 % (11.6-14.8); WHITE BLOOD COUNT 5.8 K/UL (4.8-10.8)
[2019-06-22 21:49] LABS: HEMOGLOBIN 6.2 G/DL (14.2-18.0)
--- NOTE | 2019-06-22 22:00 | NUR ---
NURSE NOTES: After 1st bag of platelets lab called Plt:[address] Raya. Dr. Raya contacted back and said to continue transfusing 2nd bag of platelets and do cbc in am. No s/s of distress noted. VSS. Continue to monitor.
[2019-06-23] VITALS: BP 140/90
[2019-06-23 04:00] VITALS: BP 143/93
[2019-06-23 07:12] LABS: HEMATOCRIT 18.5 % (42.0-52.0); MEAN CORPUSCULAR VOLUME 84 FL (80-99); PLATELET COUNT 12 K/UL (150-450); RED BLOOD COUNT 2.21 M/UL (4.70-6.10); RED CELL DISTRIBUTION WIDTH 12.4 % (11.6-14.8); WHITE BLOOD COUNT 4.6 K/UL (4.8-10.8)
[2019-06-23 08:00] VITALS: BP 142/87
--- NOTE | 2019-06-23 08:00 | NUR ---
HAND-OFF: Report given to Carmen LACY.
[2019-06-23 08:08] LABS: HEMOGLOBIN 6.6 G/DL (14.2-18.0)
--- NOTE | 2019-06-23 08:10 | NUR ---
NURSE NOTES: Nurse report given by REGINO Aquino. Patient's in stable condition, AO x2, denies pain, no s/s of distress or SOB, eyes open spontaneously. Bed low and locked, side rails x 3 , bed alarm is armed, bilateral soft wrist restraints present, pulse present bilateral wrist. IV is running fluid, no s/s of tenderness or infiltration. Will continue to monitor.
--- NOTE | 2019-06-23 08:39 | General Progress Note ---
Assessment/Plan Assessment/Plan: IMPRESSION thrombocytopenia anemia leukemia bleeding diathesis toxic met encephalopathy PLAN transfuse platelets and PRBC now remains low monitor for bleeding and discuss maintain snf meds heme eval to assist dc to snf when stable prognosis is poor ? hospice impression, plan, and exam edited and reviewed in detail care discussed with RN Subjective Allergies: Coded Allergies: No Known Allergies (Unverified , 06/20/19) Subjective care noted heme called and appreciated Objective Last 24 Hour Vital Signs Date Time Temp Pulse Resp B/P (MAP) Pulse Ox O2 Delivery O2 Flow Rate FiO2 06/23/19 08:00 98.6 89 18 142/87 (105) 98 06/23/19 04:00 97.9 97 20 143/93 (110) 96 06/23/19 04:00 96 06/23/19 00:00 94 06/23/19 00:00 97.5 89 20 140/90 (107) 97 06/22/19 21:00 Room Air 06/22/19 20:00 104 06/22/19 20:00 97.6 101 20 139/91 (107) 97 06/22/19 16:00 101 06/22/19 16:00 98.7 108 20 145/84 (104) 96 06/22/19 12:00 98.1 102 20 124/90 (101) 95 06/22/19 12:00 109 06/22/19 09:00 Room Air Intake and Output 06/22/19 06/23/19 19:00 07:00 Intake Total 1200 ml Balance 1200 ml Intake Oral 1200 ml # Voids 5 Laboratory Tests 06/22/19 21:30: White Blood Count 5.8, Red Blood Count 2.12L, Hemoglobin 6.2*L, Hematocrit 18.7L , Mean Corpuscular Volume 88, Mean Corpuscular Hemoglobin 29.1, Mean Corpuscular Hemoglobin Concent 33.0, Red Cell Distribution Width 13.2, Platelet Count 17L, Mean Platelet Volume 5.9L, Neutrophils (%) (Auto) , Lymphocytes (%) ( Auto) , Monocytes (%) (Auto) , Eosinophils (%) (Auto) , Basophils (%) (Auto) , Differential Total Cells Counted 100, Neutrophils % (Manual) 19L, Lymphocytes % (Manual) 75H, Monocytes % (Manual) 0L, Eosinophils % (Manual) 0, Basophils % ( Manual) 0, Blast Cells % 6*H, Band Neutrophils 0, Reactive Lymphocytes 1+, Platelet Estimate DecreasedL, Platelet Morphology Normal, Polychromasia Occasional, Hypochromasia 3+, Anisocytosis 1+ 06/23/19 06:00: White Blood Count 4.6L, Red Blood Count 2.21L, Hemoglobin 6.6*L, Hematocrit 18.5L, Mean Corpuscular Volume 84, Mean Corpuscular Hemoglobin 30.1, Mean Corpuscular Hemoglobin Concent 35.8, Red Cell Distribution Width 12.4, Platelet Count 12L, Mean Platelet Volume 5.2L, Neutrophils (%) (Auto) , Lymphocytes (%) ( Auto) , Monocytes (%) (Auto) , Eosinophils (%) (Auto) , Basophils (%) (Auto) , Neutrophils % (Manual) [Pending], Lymphocytes % (Manual) [Pending], Platelet Estimate [Pending], Platelet Morphology [Pending] Height (Feet): 6 Height (Inches): 0.00 Weight (Pounds): 190 Objective WDWN NAD clear breath sounds bilaterally without rhonchi or wheeze [id number] without MRG NABS nontender no HSM no CCE nonfocal Cam Raya MD Jun 23, 2019 08:39
--- NOTE | 2019-06-23 08:57 | Hematology/Onc Progress Note ---
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 -- have contacted his snf, they are unable to provide any further history for him --> recommend to obtain records in re to his leukemia if it has been treated --> will r/o DIc at this time --> if no further treatment, has a very poor prognosis --> recommend hospice at this time given poor functional status and inability to tolerate chemo # Anemia of chronic disease due to underlying chronic medical issues, multifactorial v Gi bleed in this case due to leukemia --> Anemia workup has been ordered, rule out gi bleed --> No evidence of hemolysis is noted, peripheral smear has been reviewed. --> Hgb goal >7. Transfuse prn. --> Epogen or iron at this time is not particularly indicated --> Medications have been reviewed --> low threshold for gi evaluation in case has occult + --> hgb trend 6.2-->6.8 # Bleeding diathesis with gingival bleeding. --> s/p plt and prbc transfusions --> will given vitamin K --> recheck inr/ptt after that # DNR. Appreciate consultation and dw Rn Subjective Constitutional: Denies: no symptoms, chills, fever, malaise, weakness, other HEENT: Denies: no symptoms, eye pain, blurred vision, tearing, double vision, ear pain, ear discharge, nose pain, nose congestion, throat pain, throat swelling, mouth pain, mouth swelling, other Cardiovascular: Denies: no symptoms, chest pain, edema, irregular heart rate, lightheadedness, palpitations, syncope, other Respiratory: Denies: no symptoms, cough, shortness of breath, SOB with excertion, SOB at rest, sputum, wheezing, other Gastrointestinal/Abdominal: Denies: no symptoms, abdomen distended, abdominal pain, black stools, tarry stools, blood in stool, constipated, diarrhea, difficulty swallowing, nausea, poor appetite, poor fluid intake, rectal bleeding , vomiting, other Genitourinary: Denies: no symptoms, burning, discharge, frequency, flank pain, hematuria, incontinence, pain, urgency, other Neurologic/Psychiatric: Denies: no symptoms, anxiety, depressed, emotional problems, headache, numbness, paresthesia, pre-existing deficit, seizure, tingling, tremors, weakness, other Endocrine: Denies: no symptoms, excessive sweating, flushing, intolerance to cold, intolerance to heat, increased hunger, increased thirst, increased urine, unexplained weight gain, unexplained weight loss, other Hematologic/Lymphatic: Denies: no symptoms, anemia, easy bleeding, easy bruising, adenopathy, other Allergies: Coded Allergies: No Known Allergies (Unverified , 06/20/19) Subjective 2/3: no major changes, he is unable to recall his leukemia diagnosis, no bleeding Objective Objective Current Medications Medications (Trade) Dose Ordered Sig/Balwinder Route PRN Reason Start Time Stop Time Status Last Admin Dose Admin Acetaminophen (Tylenol) 650 mg Q4H PRN ORAL Mild Pain/Temp > 100.5 06/21/19 05:30 07/21/19 05:29 Acetaminophen/ Hydrocodone Bitart ([place] 5/325) 1 tab Q6H PRN ORAL For Pain 06/21/19 06:00 06/28/19 05:59 Al Hydroxide/Mg Hydroxide (Mylanta) 30 ml Q4H PRN ORAL Abdominal cramps 06/21/19 05:30 07/21/19 05:29 Calcium Carbonate (Tums) 500 mg DAILY ORAL 06/21/19 09:00 07/21/19 08:59 06/22/19 08:22 Lorazepam (Ativan 2mg/ml 1ml) 1 mg Q4H PRN IV For Anxiety 06/21/19 05:30 06/28/19 05:29 Magnesium Hydroxide (Mom) 20 ml EVERY 12 HOURS ORAL 06/21/19 09:00 07/21/19 08:59 06/22/19 08:22 Morphine HCl (Morphine IR) 15 mg Q12H PRN ORAL Severe Pain (Pain Scale 7-10) 06/21/19 06:00 06/28/19 05:59 Multivitamins (Multivitamins) 1 tab DAILY ORAL 06/21/19 09:00 07/21/19 08:59 06/22/19 08:22 Pantoprazole (Protonix) 40 mg DAILY ORAL 06/21/19 09:00 07/21/19 08:59 06/22/19 08:22 Quetiapine Fumarate (SEROqueL) 50 mg DAILY ORAL 06/21/19 09:00 07/21/19 08:59 06/22/19 08:22 Sodium Chloride 1,000 ml @ 100 mls/hr Q10H IV 06/21/19 18:15 07/21/19 18:14 06/23/19 00:15 Thiamine HCl (Vitamin B1) 200 mg DAILY ORAL 06/21/19 09:00 07/21/19 08:59 06/22/19 08:23 Last 24 Hour Vital Signs Date Time Temp Pulse Resp B/P (MAP) Pulse Ox O2 Delivery O2 Flow Rate FiO2 06/23/19 08:00 98.6 89 18 142/87 (105) 98 06/23/19 04:00 97.9 97 20 143/93 (110) 96 06/23/19 04:00 96 06/23/19 00:00 94 06/23/19 00:00 97.5 89 20 140/90 (107) 97 06/22/19 21:00 Room Air 06/22/19 20:00 104 06/22/19 20:00 97.6 101 20 139/91 (107) 97 06/22/19 16:00 101 06/22/19 16:00 98.7 108 20 145/84 (104) 96 06/22/19 12:00 98.1 102 20 124/90 (101) 95 06/22/19 12:00 109 06/22/19 09:00 Room Air 06/22/19 08:00 104 06/22/19 08:00 97.9 105 19 142/91 (108) 98 06/22/19 04:00 97.8 100 18 131/86 (101) 97 06/22/19 04:00 98 06/22/19 00:00 100 06/22/19 00:00 98.0 105 18 148/86 (106) 97 06/21/19 21:00 Room Air 06/21/19 20:00 98.0 108 18 137/68 (91) 97 06/21/19 16:15 106 06/21/19 16:00 98.5 106 18 134/80 (98) 96 06/21/19 12:00 98.5 110 18 128/80 (96) 96 06/21/19 11:46 107 06/21/19 09:00 Room Air Intake and Output 06/22/19 06/23/19 19:00 07:00 Intake Total 1200 ml Balance 1200 ml Intake Oral 1200 ml # Voids 5 Labs Test 06/20/19 15:30 06/21/19 07:00 06/21/19 07:15 06/21/19 18:15 White Blood Count 25.9 K/UL (4.8-10.8) 22.3 K/UL (4.8-10.8) 10.5 K/UL (4.8-10.8) Red Blood Count 2.36 M/UL (4.70-6.10) 3.00 M/UL (4.70-6.10) 2.82 M/UL (4.70-6.10) Hemoglobin 7.0 G/DL (14.2-18.0) 9.4 G/DL (14.2-18.0) 8.1 G/DL (14.2-18.0) Hematocrit 20.5 % (42.0-52.0) 25.5 % (42.0-52.0) 24.8 % (42.0-52.0) Mean Corpuscular Volume 87 FL (80-99) 85 FL (80-99) 88 FL (80-99) Mean Corpuscular Hemoglobin 29.7 PG (27.0-31.0) 31.3 PG (27.0-31.0) 28.9 PG (27.0-31.0) Mean Corpuscular Hemoglobin Concent 34.2 G/DL (32.0-36.0) 36.9 G/DL (32.0-36.0) 32.9 G/DL (32.0-36.0) Red Cell Distribution Width 12.6 % (11.6-14.8) 12.1 % (11.6-14.8) 12.8 % (11.6-14.8) Platelet Count 5 K/UL (150-450) 8 K/UL (150-450) 5 K/UL (150-450) Mean Platelet Volume FL (6.5-10.1) 7.0 FL (6.5-10.1) 9.4 FL (6.5-10.1) Neutrophils (%) (Auto) % (45.0-75.0) % (45.0-75.0) % (45.0-75.0) Lymphocytes (%) (Auto) % (20.0-45.0) % (20.0-45.0) % (20.0-45.0) Monocytes (%) (Auto) % (1.0-10.0) % (1.0-10.0) % (1.0-10.0) Eosinophils (%) (Auto) % (0.0-3.0) % (0.0-3.0) % (0.0-3.0) Basophils (%) (Auto) % (0.0-2.0) % (0.0-2.0) % (0.0-2.0) Differential Total Cells Counted 100 100 100 Neutrophils % (Manual) 14 % (45-75) 10 % (45-75) 12 % (45-75) Lymphocytes % (Manual) 77 % (20-45) 56 % (20-45) 62 % (20-45) Monocytes % (Manual) 0 % (1-10) 10 % (1-10) 5 % (1-10) Eosinophils % (Manual) 0 % (0-3) 0 % (0-3) 0 % (0-3) Basophils % (Manual) 0 % (0-2) 1 % (0-2) 0 % (0-2) Blast Cells % 8 % (0-0) 22 % (0-0) 21 % (0-0) Band Neutrophils 1 % (0-8) 1 % (0-8) 0 % (0-8) Reactive Lymphocytes 1+ Smudge Cells Occasional Platelet Estimate Decreased Decreased Decreased Platelet Morphology Normal Normal Normal Hypochromasia 3+ 2+ 2+ Prothrombin Time 11.6 SEC (9.30-11.50) Prothromb Time International Ratio 1.1 (0.9-1.1) Activated Partial Thromboplast Time 32 SEC (23-33) Sodium Level 138 MMOL/L (136-145) 142 MMOL/L (136-145) Potassium Level 5.0 MMOL/L (3.5-5.1) 4.5 MMOL/L (3.5-5.1) Chloride Level 100 MMOL/L (98-107) 102 MMOL/L (98-107) Carbon Dioxide Level 27 MMOL/L (21-32) 27 MMOL/L (21-32) Anion Gap 11 mmol/L (5-15) 13 mmol/L (5-15) Blood Urea Nitrogen 35 mg/dL (7-18) 39 mg/dL (7-18) Creatinine 1.2 MG/DL (0.55-1.30) 1.3 MG/DL (0.55-1.30) Estimat Glomerular Filtration Rate > 60 mL/min (>60) 58.7 mL/min (>60) Glucose Level 107 MG/DL (74-106) 104 MG/DL (74-106) Calcium Level 9.1 MG/DL (8.5-10.1) 9.2 MG/DL (8.5-10.1) Total Bilirubin 0.6 MG/DL (0.2-1.0) Aspartate Amino Transf (AST/SGOT) 24 U/L (15-37) Alanine Aminotransferase (ALT/SGPT) 30 U/L (12-78) Alkaline Phosphatase 242 U/L (46-116) Total Protein 6.6 G/DL (6.4-8.2) Albumin 3.3 G/DL (3.4-5.0) Globulin 3.3 g/dL Albumin/Globulin Ratio 1.0 (1.0-2.7) Anisocytosis 1+ 1+ Spherocytes 2+ 2+ Test 06/22/19 07:10 06/22/19 21:30 06/23/19 06:00 White Blood Count 9.6 K/UL (4.8-10.8) 5.8 K/UL (4.8-10.8) 4.6 K/UL (4.8-10.8) Red Blood Count 2.55 M/UL (4.70-6.10) 2.12 M/UL (4.70-6.10) 2.21 M/UL (4.70-6.10) Hemoglobin 7.8 G/DL (14.2-18.0) 6.2 G/DL (14.2-18.0) 6.6 G/DL (14.2-18.0) Hematocrit 21.4 % (42.0-52.0) 18.7 % (42.0-52.0) 18.5 % (42.0-52.0) Mean Corpuscular Volume 84 FL (80-99) 88 FL (80-99) 84 FL (80-99) Mean Corpuscular Hemoglobin 30.8 PG (27.0-31.0) 29.1 PG (27.0-31.0) 30.1 PG (27.0-31.0) Mean Corpuscular Hemoglobin Concent 36.7 G/DL (32.0-36.0) 33.0 G/DL (32.0-36.0) 35.8 G/DL (32.0-36.0) Red Cell Distribution Width 12.2 % (11.6-14.8) 13.2 % (11.6-14.8) 12.4 % (11.6-14.8) Platelet Count 12 K/UL (150-450) 17 K/UL (150-450) 12 K/UL (150-450) Mean Platelet Volume 9.0 FL (6.5-10.1) 5.9 FL (6.5-10.1) 5.2 FL (6.5-10.1) Neutrophils (%) (Auto) % (45.0-75.0) % (45.0-75.0) % (45.0-75.0) Lymphocytes (%) (Auto) % (20.0-45.0) % (20.0-45.0) % (20.0-45.0) Monocytes (%) (Auto) % (1.0-10.0) % (1.0-10.0) % (1.0-10.0) Eosinophils (%) (Auto) % (0.0-3.0) % (0.0-3.0) % (0.0-3.0) Basophils (%) (Auto) % (0.0-2.0) % (0.0-2.0) % (0.0-2.0) Differential Total Cells Counted 100 100 Neutrophils % (Manual) 10 % (45-75) 19 % (45-75) Lymphocytes % (Manual) 74 % (20-45) 75 % (20-45) Monocytes % (Manual) 2 % (1-10) 0 % (1-10) Eosinophils % (Manual) 1 % (0-3) 0 % (0-3) Basophils % (Manual) 0 % (0-2) 0 % (0-2) Blast Cells % 10 % (0-0) 6 % (0-0) Band Neutrophils 3 % (0-8) 0 % (0-8) Platelet Estimate Decreased Decreased Platelet Morphology Normal Normal Hypochromasia 1+ 3+ Sodium Level 144 MMOL/L (136-145) Potassium Level 4.1 MMOL/L (3.5-5.1) Chloride Level 105 MMOL/L (98-107) Carbon Dioxide Level 28 MMOL/L (21-32) Anion Gap 11 mmol/L (5-15) Blood Urea Nitrogen 43 mg/dL (7-18) Creatinine 1.2 MG/DL (0.55-1.30) Estimat Glomerular Filtration Rate > 60 mL/min (>60) Glucose Level 100 MG/DL (74-106) Calcium Level 8.8 MG/DL (8.5-10.1) Reactive Lymphocytes 1+ Polychromasia Occasional Anisocytosis 1+ Height (Feet): 6 Height (Inches): 0.00 Weight (Pounds): 190 Objective PE: Vitals: reviewed General Appearance: NAD HEENT: normocephalic, atraumatic Neck: non-tender, normal alignment Respiratory/Chest: normal breath sounds bilaterally Cardiovascular/Chest: normal peripheral pulses, normal rate Abdomen: normal bowel sounds, soft, nontender Extremities: normal range of motion Felipe Paz MD Jun 23, 2019 08:57
[2019-06-23] MEDS: Milk of Magnesia 30ml Ud ORAL SCH ×2 (09:00→21:38)
[2019-06-23] MEDS: Tums 500mg ORAL SCH (09:31)
[2019-06-23] MEDS: Thiamine 100mg tab ORAL SCH (09:32)
[2019-06-23 12:00] VITALS: BP 137/95
--- NOTE | 2019-06-23 12:02 | NUR ---
NURSE NOTES: Left message to Dr. Raya regarding patient's positive for MRSA nares. Awaiting for response.
--- NOTE | 2019-06-23 13:27 | NUR ---
*-* INSURANCE *-* ALL AVAILABLE CLINICALS HAVE BEEN FAXED TO: [facility] F: [phone] REF# [id number]
--- NOTE | 2019-06-23 14:11 | NUR ---
CASE MANAGEMENT: INITIAL REVIEW 48YR OLD MALE BIBA FROM [facility] CC:ABNORMAL LABS: LOW PLT CT 12,000 AND WBC 19.51 SI:ANEMIA . THROMBOCYTOPENIA . 98.1 106 18 119/80 91% ON RA WBC 25.9 H/H 7.0/20.5 PLT 5 BUN 35 IS:PRBC X 1 FFP X1 \: 2E TELE UNIT DCP: [facility] WHEN STABLE CASE MANAGEMENT: REVIEW 06/21/2019 SI:ANEMIA . THROMBOCYTOPENIA . MRSA(+) 98.5 110 18 128/80 96% ON RA WBC 22.3 H/H 8.1/24.8 PLT 5 BUN 35 IS:IVF NS@100ML/HR SEROQUEL PO QD PROTONIX PO QD THIAMINE PO QD MTV PO QD \: 2E TELE UNIT DCP: [facility] WHEN STABLE PLAN: TRANSFUSE: 2 UNIT PRBC CASE MANAGEMENT: REVIEW 06/22/2019 SI:ANEMIA . THROMBOCYTOPENIA . (+) MRSA 98.1 109 20 124/90 95% ON RA H/H 6.2/18.7 PLT 17 BUN 43 IS:IVF NS@100ML/HR SEROQUEL PO QD PROTONIX PO QD THIAMINE PO QD MTV PO QD \: 2E TELE UNIT DCP: [facility] WHEN STABLE PLAN: REPEAT LABS CASE MANAGEMENT: REVIEW 06/23/2019 SI:ANEMIA . THROMBOCYTOPENIA . (+) MRSA 98.6 89 18 142/87 98% ON RA RBC 2.21 H/H 6.6/18.5 PLT 12 BUN 43 IS:IVF NS@100ML/HR SEROQUEL PO QD PROTONIX PO QD THIAMINE PO QD MTV PO QD \: 2E TELE UNIT DCP: [facility] WHEN STABLE PLAN: 2 PRBC UNIT
[2019-06-23 16:00] VITALS: BP 148/95
--- NOTE | 2019-06-23 19:56 | NUR ---
HAND-OFF: Report given to REGINO Palmer. Patient's stable, plan of care endorsed.
[2019-06-23 20:00] VITALS: BP 140/94
--- NOTE | 2019-06-23 20:00 | NUR ---
NURSE NOTES: Received report from Nannette Hancock RN. Pt in stable condition, alert, confused, denies pain at this time, FLACC 0. Pt is SR, VS WNL. Will continue to monitor and plan of care.
[2019-06-24] VITALS: BP 135/95
[2019-06-24 04:00] VITALS: BP 147/90
--- NOTE | 2019-06-24 07:12 | Hematology/Onc Progress Note ---
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 -- have contacted his snf, they are unable to provide any further history for him, multiple blasts noted on p smear --> recommend to obtain records in re to his leukemia if it has been treated --> will r/o DIc at this time, fibrinogen and dic neg --> if no further treatment, has a very poor prognosis --> recommend hospice at this time given poor functional status and inability to tolerate chemo --> if did improve at snf, may consider vidaza as outpatient treatment # Anemia of chronic disease due to underlying chronic medical issues, multifactorial v Gi bleed in this case due to leukemia --> Anemia workup has been ordered, rule out gi bleed --> No evidence of hemolysis is noted, peripheral smear has been reviewed. --> Hgb goal >7. Transfuse prn. --> Epogen or iron at this time is not particularly indicated --> Medications have been reviewed --> low threshold for gi evaluation in case has occult + --> hgb trend 6.2-->6.8 # Bleeding diathesis with gingival bleeding. --> s/p plt and prbc transfusions --> will given vitamin K --> recheck inr/ptt after that # DNR. Appreciate consultation and car Rn Subjective HEENT: Denies: no symptoms, eye pain, blurred vision, tearing, double vision, ear pain, ear discharge, nose pain, nose congestion, throat pain, throat swelling, mouth pain, mouth swelling, other Cardiovascular: Denies: no symptoms, chest pain, edema, irregular heart rate, lightheadedness, palpitations, syncope, other Respiratory: Denies: no symptoms, cough, shortness of breath, SOB with excertion, SOB at rest, sputum, wheezing, other Gastrointestinal/Abdominal: Denies: no symptoms, abdomen distended, abdominal pain, black stools, tarry stools, blood in stool, constipated, diarrhea, difficulty swallowing, nausea, poor appetite, poor fluid intake, rectal bleeding , vomiting, other Neurologic/Psychiatric: Denies: no symptoms, anxiety, depressed, emotional problems, headache, numbness, paresthesia, pre-existing deficit, seizure, tingling, tremors, weakness, other Endocrine: Denies: no symptoms, excessive sweating, flushing, intolerance to cold, intolerance to heat, increased hunger, increased thirst, increased urine, unexplained weight gain, unexplained weight loss, other Allergies: Coded Allergies: No Known Allergies (Unverified , 06/20/19) Subjective 2/3: no major changes, he is unable to recall his leukemia diagnosis, no bleeding 2/4: no complaints, remains altered, labs are noted, no bleeding Objective Objective Current Medications Medications (Trade) Dose Ordered Sig/Balwinder Route PRN Reason Start Time Stop Time Status Last Admin Dose Admin Acetaminophen (Tylenol) 650 mg Q4H PRN ORAL Mild Pain/Temp > 100.5 06/21/19 05:30 07/21/19 05:29 Acetaminophen/ Hydrocodone Bitart (Orrum 5/325) 1 tab Q6H PRN ORAL For Pain 06/21/19 06:00 06/28/19 05:59 Al Hydroxide/Mg Hydroxide (Mylanta) 30 ml Q4H PRN ORAL Abdominal cramps 06/21/19 05:30 07/21/19 05:29 Calcium Carbonate (Tums) 500 mg DAILY ORAL 06/21/19 09:00 07/21/19 08:59 06/23/19 09:31 Lorazepam (Ativan 2mg/ml 1ml) 1 mg Q4H PRN IV For Anxiety 06/21/19 05:30 06/28/19 05:29 Magnesium Hydroxide (Mom) 20 ml EVERY 12 HOURS ORAL 06/21/19 09:00 07/21/19 08:59 06/23/19 21:38 Morphine HCl (Morphine IR) 15 mg Q12H PRN ORAL Severe Pain (Pain Scale 7-10) 06/21/19 06:00 06/28/19 05:59 Multivitamins (Multivitamins) 1 tab DAILY ORAL 06/21/19 09:00 07/21/19 08:59 06/23/19 09:32 Pantoprazole (Protonix) 40 mg DAILY ORAL 06/21/19 09:00 07/21/19 08:59 06/23/19 09:31 Quetiapine Fumarate (SEROqueL) 50 mg DAILY ORAL 06/21/19 09:00 07/21/19 08:59 06/23/19 09:31 Sodium Chloride 1,000 ml @ 100 mls/hr Q10H IV 2/1/20 18:15 07/21/19 18:14 06/23/19 20:15 Thiamine HCl (Vitamin B1) 200 mg DAILY ORAL 06/21/19 09:00 07/21/19 08:59 06/23/19 09:32 Last 24 Hour Vital Signs Date Time Temp Pulse Resp B/P (MAP) Pulse Ox O2 Delivery O2 Flow Rate FiO2 06/24/19 04:00 97.9 91 16 147/90 (109) 97 06/24/19 03:55 86 06/24/19 00:00 97.7 88 16 135/95 (108) 98 06/24/19 00:00 93 06/23/19 21:00 Room Air 06/23/19 20:00 94 06/23/19 20:00 98.2 95 19 140/94 (109) 98 06/23/19 16:00 99.0 88 19 148/95 (112) 98 06/23/19 16:00 94 06/23/19 12:00 85 06/23/19 12:00 97.7 82 18 137/95 (109) 96 06/23/19 09:00 Room Air 06/23/19 08:00 85 06/23/19 08:00 98.6 89 18 142/87 (105) 98 06/23/19 04:00 97.9 97 20 143/93 (110) 96 06/23/19 04:00 96 06/23/19 00:00 94 06/23/19 00:00 97.5 89 20 140/90 (107) 97 06/22/19 21:00 Room Air 06/22/19 20:00 104 06/22/19 20:00 97.6 101 20 139/91 (107) 97 06/22/19 16:00 101 06/22/19 16:00 98.7 108 20 145/84 (104) 96 06/22/19 12:00 98.1 102 20 124/90 (101) 95 06/22/19 12:00 109 06/22/19 09:00 Room Air 06/22/19 08:00 104 06/22/19 08:00 97.9 105 19 142/91 (108) 98 Intake and Output 06/23/19 06/24/19 19:00 07:00 Intake Total 220 ml Balance 220 ml Intake Oral 220 ml # Voids 3 # Bowel Movements 2 1 Labs Test 06/21/19 07:15 06/21/19 18:15 06/22/19 07:10 06/22/19 21:30 White Blood Count 22.3 K/UL (4.8-10.8) 10.5 K/UL (4.8-10.8) 9.6 K/UL (4.8-10.8) 5.8 K/UL (4.8-10.8) Red Blood Count 3.00 M/UL (4.70-6.10) 2.82 M/UL (4.70-6.10) 2.55 M/UL (4.70-6.10) 2.12 M/UL (4.70-6.10) Hemoglobin 9.4 G/DL (14.2-18.0) 8.1 G/DL (14.2-18.0) 7.8 G/DL (14.2-18.0) 6.2 G/DL (14.2-18.0) Hematocrit 25.5 % (42.0-52.0) 24.8 % (42.0-52.0) 21.4 % (42.0-52.0) 18.7 % (42.0-52.0) Mean Corpuscular Volume 85 FL (80-99) 88 FL (80-99) 84 FL (80-99) 88 FL (80- 99) Mean Corpuscular Hemoglobin 31.3 PG (27.0-31.0) 28.9 PG (27.0-31.0) 30.8 PG (27.0-31.0) 29.1 PG (27.0-31.0) Mean Corpuscular Hemoglobin Concent 36.9 G/DL (32.0-36.0) 32.9 G/DL (32.0-36.0) 36.7 G/DL (32.0-36.0) 33.0 G/DL (32.0-36.0) Red Cell Distribution Width 12.1 % (11.6-14.8) 12.8 % (11.6-14.8) 12.2 % (11.6-14.8) 13.2 % (11.6-14.8) Platelet Count 8 K/UL (150-450) 5 K/UL (150-450) 12 K/UL (150-450) 17 K/UL (150-450) Mean Platelet Volume 7.0 FL (6.5-10.1) 9.4 FL (6.5-10.1) 9.0 FL (6.5-10.1) 5.9 FL (6.5-10.1) Neutrophils (%) (Auto) % (45.0-75.0) % (45.0-75.0) % (45.0-75.0) % (45.0- 75.0) Lymphocytes (%) (Auto) % (20.0-45.0) % (20.0-45.0) % (20.0-45.0) % (20.0- 45.0) Monocytes (%) (Auto) % (1.0-10.0) % (1.0-10.0) % (1.0-10.0) % (1.0-10.0) Eosinophils (%) (Auto) % (0.0-3.0) % (0.0-3.0) % (0.0-3.0) % (0.0-3.0) Basophils (%) (Auto) % (0.0-2.0) % (0.0-2.0) % (0.0-2.0) % (0.0-2.0) Differential Total Cells Counted 100 100 100 100 Neutrophils % (Manual) 10 % (45-75) 12 % (45-75) 10 % (45-75) 19 % (45-75) Lymphocytes % (Manual) 56 % (20-45) 62 % (20-45) 74 % (20-45) 75 % (20-45) Monocytes % (Manual) 10 % (1-10) 5 % (1-10) 2 % (1-10) 0 % (1-10) Eosinophils % (Manual) 0 % (0-3) 0 % (0-3) 1 % (0-3) 0 % (0-3) Basophils % (Manual) 1 % (0-2) 0 % (0-2) 0 % (0-2) 0 % (0-2) Blast Cells % 22 % (0-0) 21 % (0-0) 10 % (0-0) 6 % (0-0) Band Neutrophils 1 % (0-8) 0 % (0-8) 3 % (0-8) 0 % (0-8) Platelet Estimate Decreased Decreased Decreased Decreased Platelet Morphology Normal Normal Normal Normal Hypochromasia 2+ 2+ 1+ 3+ Anisocytosis 1+ 1+ 1+ Spherocytes 2+ 2+ Sodium Level 144 MMOL/L (136-145) Potassium Level 4.1 MMOL/L (3.5-5.1) Chloride Level 105 MMOL/L (98-107) Carbon Dioxide Level 28 MMOL/L (21-32) Anion Gap 11 mmol/L (5-15) Blood Urea Nitrogen 43 mg/dL (7-18) Creatinine 1.2 MG/DL (0.55-1.30) Estimat Glomerular Filtration Rate > 60 mL/min (>60) Glucose Level 100 MG/DL (74-106) Calcium Level 8.8 MG/DL (8.5-10.1) Reactive Lymphocytes 1+ Polychromasia Occasional Test 06/23/19 06:00 White Blood Count 4.6 K/UL (4.8-10.8) Red Blood Count 2.21 M/UL (4.70-6.10) Hemoglobin 6.6 G/DL (14.2-18.0) Hematocrit 18.5 % (42.0-52.0) Mean Corpuscular Volume 84 FL (80-99) Mean Corpuscular Hemoglobin 30.1 PG (27.0-31.0) Mean Corpuscular Hemoglobin Concent 35.8 G/DL (32.0-36.0) Red Cell Distribution Width 12.4 % (11.6-14.8) Platelet Count 12 K/UL (150-450) Mean Platelet Volume 5.2 FL (6.5-10.1) Neutrophils (%) (Auto) % (45.0-75.0) Lymphocytes (%) (Auto) % (20.0-45.0) Monocytes (%) (Auto) % (1.0-10.0) Eosinophils (%) (Auto) % (0.0-3.0) Basophils (%) (Auto) % (0.0-2.0) Differential Total Cells Counted 100 Neutrophils % (Manual) 33 % (45-75) Lymphocytes % (Manual) 63 % (20-45) Monocytes % (Manual) 1 % (1-10) Eosinophils % (Manual) 0 % (0-3) Basophils % (Manual) 0 % (0-2) Blast Cells % 2 % (0-0) Band Neutrophils 1 % (0-8) Platelet Estimate Decreased Platelet Morphology Normal Hypochromasia 1+ Height (Feet): 6 Height (Inches): 0.00 Weight (Pounds): 190 Objective PE: Vitals: reviewed General Appearance: NAD HEENT: normocephalic, atraumatic Neck: non-tender, normal alignment Respiratory/Chest: normal breath sounds bilaterally Cardiovascular/Chest: normal peripheral pulses, normal rate Abdomen: normal bowel sounds, soft, nontender Extremities: normal range of motion Felipe Paz MD Jun 24, 2019 07:12
--- NOTE | 2019-06-24 07:18 | NUR ---
HAND-OFF: Report given to Kylah Simmons RN. Endorsed plan of care and close monitoring. Pt in stable condition at this time.
--- NOTE | 2019-06-24 07:45 | NUR ---
NURSE NOTES: Received report from REGINO Palmer. Patient is A/Ox1, breathing even and unlabored in RA. IV site on right FA running NS @ 100ml/hr. No complain of pain. Pt on bilateral soft wrist restraint, bilateral radial pulses present, no swelling noted on hands. Tongue is still swollen, with barros of bleeding. +3 edema on BLE. Bed on lowest position, call light within reach. Will continue plan of care.
[2019-06-24 08:00] VITALS: BP 155/93
--- NOTE | 2019-06-24 08:27 | General Progress Note ---
Assessment/Plan Assessment/Plan: IMPRESSION thrombocytopenia anemia leukemia bleeding diathesis toxic met encephalopathy PLAN transfuse platelets and PRBC done repeat pending monitor for bleeding and discuss maintain snf meds heme eval to assist dc to snf when stable prognosis is poor ? hospice impression, plan, and exam edited and reviewed in detail care discussed with RN Subjective Allergies: Coded Allergies: No Known Allergies (Unverified , 06/20/19) Subjective care noted heme called and appreciated Objective Last 24 Hour Vital Signs Date Time Temp Pulse Resp B/P (MAP) Pulse Ox O2 Delivery O2 Flow Rate FiO2 06/24/19 04:00 97.9 91 16 147/90 (109) 97 06/24/19 03:55 86 06/24/19 00:00 97.7 88 16 135/95 (108) 98 06/24/19 00:00 93 06/23/19 21:00 Room Air 06/23/19 20:00 94 06/23/19 20:00 98.2 95 19 140/94 (109) 98 06/23/19 16:00 99.0 88 19 148/95 (112) 98 06/23/19 16:00 94 06/23/19 12:00 85 06/23/19 12:00 97.7 82 18 137/95 (109) 96 06/23/19 09:00 Room Air Intake and Output 06/23/19 06/24/19 19:00 07:00 Intake Total 220 ml Balance 220 ml Intake Oral 220 ml # Voids 3 # Bowel Movements 2 1 Height (Feet): 6 Height (Inches): 0.00 Weight (Pounds): 190 Objective WDWN NAD clear breath sounds bilaterally without rhonchi or wheeze [id number] without MRG NABS nontender no HSM no CCE nonfocal Cam Raya MD Jun 24, 2019 08:27
--- NOTE | 2019-06-24 09:44 | NUR ---
NURSE NOTES: No Quetiapine available on the floor. Called pharmacy to let them know.
[2019-06-24] MEDS: Thiamine 100mg tab ORAL SCH (09:48)
[2019-06-24] MEDS: Tums 500mg ORAL SCH (09:48)
[2019-06-24] MEDS: Milk of Magnesia 30ml Ud ORAL SCH (09:49)
[2019-06-24 09:51] LABS: HEMATOCRIT 24.5 % (42.0-52.0); HEMOGLOBIN 8.8 G/DL (14.2-18.0); MEAN CORPUSCULAR VOLUME 84 FL (80-99); RED BLOOD COUNT 2.92 M/UL (4.70-6.10); RED CELL DISTRIBUTION WIDTH 12.2 % (11.6-14.8); WHITE BLOOD COUNT 3.5 K/UL (4.8-10.8)
[2019-06-24 10:04] LABS: PLATELET COUNT 8 K/UL (150-450)
--- NOTE | 2019-06-24 10:26 | NUR ---
NURSE NOTES: Reported PLT 8, Hgb 8.8, Hct 24.[address] Paz Addendum: 06/24/19 at 1940 by Kylah Barreto RN Dr Paz ordered one unit platelets. Blood bank called saying that it will take 4-[address] to [address] Informed Dr. Raya, since there is already a d/c order for the patient. At 12:05, Dr Raya said no need for transfusion because patient is hospice.
--- NOTE | 2019-06-24 11:29 | NUR ---
CASE MANAGEMENT:REVIEW 06/24/19 SI: ANEMIA. THROMBOCYTOPENIA BLEEDING DIATHESIS...S/P 2U PLATELETS AND 4 U PRBC'S 97.7 90 18 155/92 97% ON RA H/H-8.8/24.5 PLT-8 IS: IVF@100/HR PROTONIX PO QD SEROQUEL PO QD THIAMINE PO QD : TELEMETRY STATUS DCP: FROM [facility]
[2019-06-24 12:00] VITALS: BP 142/93
--- NOTE | 2019-06-24 13:49 | NUR ---
SUPERVISOR BLOOD DONOR RECRUITERS CONSULT SW received a consult for end of life discussion. PT is Hungarian speaking. distribution center supervisor Trinh #[id number] assisted w/ the assessment. Pt presents as disorganized w/ flat affect. Per chart review, pt resides at [address] [address]. When SW asked, pt stated he resides in a small car. Pt is single and has four adult children but they do not reside in [place]. Per pt, he does not have any contact w/ family/friends. Pt has no family members in [place]. Pt states he receives some income but was unable to provide further detail. SW met w/ Kenya Youssef, executive community planning from [facility] [phone] that pt has been receiving hospice care since January 2019. Per Kenya, pt was alert a few months ago but pt does not appear to be alert and oriented this time. Kenya confirmed pt has no emergency contact. SW to F/U as needed. Signed: 06/24/19 at 1357 by ELIEL CARDOZA <Co-Signature Required>
--- NOTE | 2019-06-24 14:01 | NUR ---
LINING BASTER NOTE ADD: Per Kenya from [facility], pt will continue to receive hospice care upon DC. Signed: 06/24/19 at 1401 by ELIEL CARDOZA <Co-Signature Required>
--- NOTE | 2019-06-24 14:54 | NUR ---
DISCHARGE PLANNED DISCHARGE ORDER RECEIVED FROM DR BAY AND ENTERED SPOKE WITH QUINTIN AT "[facility]" PER QUINTIN PATIENT HAS BEEN ACCEPTED BACK TO [facility] [address]OM [address] T: [phone] FOR NURSE TO NURSE REPORT QUINTIN FROM "[facility]" WILL ARRANGE TRANSPORTATION AND THEN INFORM US OF PARTICULARS Addendum: 06/24/19 at 1503 by MIGNON SHERMAN LVN LVN QUINTIN T: [phone] F: [phone]
--- NOTE | 2019-06-24 15:10 | NUR ---
RD ASSESSMENT & RECOMMENDATIONS SEE CARE ACTIVITY FOR COMPLETE ASSESSMENT DAILY ESTIMATED NEEDS: Needs based on Leukemia, 83.5kg abw 25-30 kcals/kg 2086- 2499 total kcals 1-1.5 g protein/kg 83-124 g total protein 25-30 mL/kg 2693-0898 total fluid mLs NUTRITION DIAGNOSIS: Increased kcal/prot needs R/T catabolic dx as evidenced by dx of Leukemia, w/ critically low platelet (8*), low wbc (3.5), low RBC. CURRENT DIET:SOFT PO DIET RECOMMENDATIONS: Regular/ texture as tolerated ADDITIONAL RECOMMENDATIONS: * Calibrated bedscale wt * Ensure Enlive BID w/ meals w/ variable PO intake (350kcal/20g prot per bottle) * Monitor tolerance to texture, need for SUPERVISOR LABOR GANG eval for appropriate texture * Monitor POC: poor pronosis per MD, DC planning w/ hospice
[2019-06-24 16:00] VITALS: BP 146/95
--- NOTE | 2019-06-24 18:13 | NUR ---
NURSE NOTES: Gave report to REGINO Guevara at [facility].
--- NOTE | 2019-06-24 19:35 | NUR ---
NURSE NOTES: Received report from Kylah Simmons RN. Pt in stable condition, alert, confused, denies pain at this time, FLACC 0. Pt is SR, VS WNL. Will continue to monitor and plan of care. Pt is to DC per MD orders. All DC paperwork completed per protocol.
--- NOTE | 2019-06-24 19:35 | NUR ---
HAND-OFF: Report given to REGINO Palmer. Pt is stable. Waiting for the ambulance to transfer him to [facility].
--- NOTE | 2019-06-24 19:55 | NUR ---
NURSE NOTES: [facility] ambulance came to transfer pt to [facility] per MD order. Pt had no personal belongings. Pt in stable condition, confused, denies pain at this time, FLACC 0.
--- NOTE | 2019-06-26 09:05 | Discharge Summary ---
Discharge Summary Discharge Summary _ DATE OF ADMISSION: 06/20/2019 DATE OF DISCHARGE: 06/24/2019 DISCHARGED BY: Dr. Raya REASON FOR ADMISSION: 48 years old male , resident of care home facility, with past medical history of leukemia ,osteoarthritis, presented for evaluation due to bleeding . Laboratory work-up revealed significant leukocytosis WBC 25.9, hemoglobin 7, hematocrit 20.5, platelet count 5. Stable electrolytes. BUN 35, creatinine 1.2. Glucose 107. Albumin 3.3. Per POLST patient was DNR/DNI status with comfort focused care. Patient subsequently admitted for further management . CONSULTANTS: shell trim tool setter/oncologist Dr. Paz [facility] COURSE: Patient admitted to telemetry floor and started on transfusion of platelets and packed red blood cells. Hematology consult was requested. SNF medication resumed. Patient received transfusion of 2 units of plateletpheresis and 4 units of leukocyte reduced PRBCs. Prior to discharge hemoglobin 8.8 ,hematocrit 24.5 ,platelet count initially increased to 17 and then went down to 8. Per shell trim tool setter multiply blasts noted on peripheral smear. SNF was contacted for further information , however SNF did not have any other information for him. Training Personnel Supervisor recommended to obtain records if he was treated in leukemia in the past. Overall prognosis was very poor. Training Personnel Supervisor recommended hospice , given poor functional status and inability to tolerate chemotherapy. Patient also received vitamin K for bleeding diathesis No further bleeding . Patient clinically stabilized and was ready for transfer to care home facility. Overall prognosis poor. Consider hospice services. FINAL DIAGNOSES: Toxic metabolic encephalopathy Acute leukemia Acute thrombocytopenia Anemia of chronic disease Bleeding diathesis DISCHARGE MEDICATIONS: See Medication Reconciliation list. DISCHARGE INSTRUCTIONS: Patient was discharged to the care home facility. Follow up with medical doctor at the facility I have been assigned to dictate discharge summary for this account. I was not involved in the patient's management. Yvette Hernandez NP Jun 26, 2019 09:05
--- NOTE | 2019-06-26 16:17 | NUR ---
*-* INSURANCE *-* DISCHARGE SUMMARY HAS BEEN FAXED TO: [facility] F: [phone] REF# [id number]
== END 2019-06-24 19:55 | DRG 813 ==
LOC: EDBD 14:38 → EMR 15:48 → 2E 17:32 → EDBEDREQ 17:58
PROC: 30233N1 Transfusion of Nonautologous Red Blood Cells into Peripheral Vein, Percutaneous Approach (ICD-10-PCS; principal; 2019-06-20)
PROC: 30233R1 Transfusion of Nonautologous Platelets into Peripheral Vein, Percutaneous Approach (ICD-10-PCS; 2019-06-21)
DX: D69.6 Thrombocytopenia, unspecified (principal); G92 Toxic encephalopathy; C95.00 Acute leukemia of unspecified cell type not having achieved remission; Z66 Do not resuscitate
CPT/HCPCS: 36415; 80048; 80053; 85007; 85025; 85610; 85730; 86850; 86900; 86901; 86920; 87081; 99285; J7030